=== PATIENT | female | born 1980 | race Caucasian/White ===

== ENCOUNTER 2017-06-28 14:57 | Inpatient (IN) | payer OTHER ==
[2017-06-28] MEDS ORDERED: ACETAMINOPHEN 500 MG TABLET (FP) PO ONE (16:09)
[2017-06-28] MEDS ORDERED: ACETAMINOPHEN 500 MG TABLET (FP) ONE (16:12)
[2017-06-28] MEDS ORDERED: SODIUM CHLORIDE 1,000 ML IV STA (16:12)
--- NOTE | 2017-06-28 16:24 | PDOC ---
History of Present Illness - General Chief Complaint: Hemorrhoids Stated Complaint: HEMORRHOIDS (PCP SENT) Time Seen by Provider: 06/28/17 15:21 History Source: Patient Exam Limitations: No Limitations - History of Present Illness Initial Comments: 06/28/17 16:36 My chief complaint: Rectal pain, hemorrhoids, constipation History of present illness: Patient is a 36-year-old female with a history of an anal fissure 2013 here today complaining of severe rectal pain with external hemorrhoids since 06/26/2017. Patient gave vaginally on 06/22/2017 and had an episiotomy. Patient's RD MECHANICAL ENGINEER is in [facility] [address] [place]. This was the patient's first and . Patient reports that she had had a bowel movement since 06/20/2017 and on 06/26/2017 was straining to have a bowel movement which was very painful patient noted external hemorrhoids. Patient went to [facility] while waiting to be seen she went into the bathroom had a large hard bowel movement with rectal bleeding and patient reports she had 2 slightly disimpact herself. Patient was prescribed MiraLAX and Colace 300 mg daily. Patient took MiraLAX only on 06/26/2017 and took Colace daily except for yesterday. Patient called her RD MECHANICAL ENGINEER yesterday and was told to apply hydrocortisone to her cortisone cream to her hemorrhoids. Her RD MECHANICAL ENGINEER left for 2 weeks to [place]. Patient is not breast-feeding. Patient denies any fever, chills , any vomiting. Patient reports she feels slight nausea when rectal pain is increased. Patient finds it difficult to to walk stand or sit. Patient feels the best sitting with a doughnut cushion in a wheelchair. Patient reports that her RD MECHANICAL ENGINEER did not want to do any sitz bath due to her having sutures from her episiotomy. Patient has been taking water bottle and irrigating her stitches and hemorrhoids at the same time. Patient reports she is being treated currently for and UTI with Macrobid. Patient reports her last bowel movement was 2 days ago and was loose yellowish, patient did not notice any blood mixed in with bowel movement. Patient is bleeding vaginally slightly colored blood. 06/28/17 16:42 Timing/Duration: getting worse Severity: severe (rectal hemorrhoids) Associated Symptoms: reports: denies symptoms Past History - Past Medical History Allergies/Adverse Reactions: Allergies Allergy/AdvReac Type Severity Reaction Status Date / Time latex Allergy Rash Verified 06/28/17 15:05 Penicillins Allergy Rash Verified 06/28/17 15:06 tetracycline Allergy Rash Verified 06/28/17 15:05 Home Medications: Ambulatory Orders Docusate Sodium [Colace -] 300 mg PO DAILY 06/28/17 Hydrocortisone/Aloe Vera [Cortizone-10 1% Creme] 28 gm TP ASDIR 06/28/17 Nitrofurantoin Macrocrystal [Nitrofurantoin] 25 mg PO BID 06/28/17 Vits #93/Iron Fum/FA [ Formula Tablet] 1 each PO ASDIR Other medical history: h/o anal fissure 2012 - Surgical History Abdominal Surgery: Yes (EX LAP) - Suicide/Smoking/Psychosocial Hx Smoking History: Never smoked Hx Alcohol Use: Yes (SOCIAL) Drug/Substance Use Hx: No Review of Systems - Review of Systems Able to Perform ROS?: Yes Constitutional: Yes: Loss of Appetite HEENTM: No: Symptoms Reported Respiratory: No: Symptoms reported Cardiac (ROS): No: Symptoms Reported ABD/GI: Yes: Blood Streaked Bowels (on 06/26/17), Constipated, Diarrhea (2 days ) , Nausea, Other (external hemorrhoids b/l ). No: Rectal Bleeding, Vomiting, Indigestion, Abdominal cramping, Tarry Stools : Yes: Other (currently being treated for UTI ) Musculoskeletal: No: Symptoms Reported Integumentary: No: Symptoms Reported Neurological: No: Symptoms reported *Physical Exam - Vital Signs Last Vital Signs Temp Pulse Resp BP Pulse Ox 99.0 F 77 20 136/83 97 06/28/17 15:00 06/28/17 15:00 06/28/17 15:00 06/28/17 15:00 06/28/17 15:00 - Physical Exam General Appearance: Yes: Appropriately Dressed Respiratory/Chest: positive: Lungs Clear, Normal Breath Sounds. negative: Chest Tender, Respiratory Distress Cardiovascular: positive: Regular Rhythm, Regular Rate, S1, S2 Female Pelvic Exam: positive: other (vaginal bleeding slight light pink ) Gastrointestinal/Abdominal: positive: Normal Bowel Sounds, Soft. negative: Tender, Organomegaly, Increased Bowel Sounds, Decreased BS, Distended, Guarding , Rebound, Tenderness, Mass, Hepatomegaly, Spleenomegaly Rectal Exam: positive: hemorrhoids (external non thrombosed b/l ), other ( unable to do rectal exam due to pain) Integumentary: positive: Normal Color Neurologic: positive: Alert, Normal Response, Responsive ED Treatment Course - LABORATORY CBC & Chemistry Diagram: 06/28/17 16:30 06/28/17 16:30 - RADIOLOGY Radiology Studies Ordered: Category Date Time Status ABDOMEN-KUB FLAT PLATE [RAD] Stat Radiology 06/28/17 16:12 Ordered Medical Decision Making - Medical Decision Making 06/28/17 16:42 Patient is a 36-year-old female with a history of an anal fissure 2013 here today complaining of severe rectal pain with external hemorrhoids since 2016. Patient gave vaginally on 06/22/2017 and had an episiotomy. Patient' s RD MECHANICAL ENGINEER is in [facility] [address] [place]. This was the patient's first and . Patient reports that she had had a bowel movement since 09/2017 and on 06/26/2017 was straining to have a bowel movement which was very painful patient noted external hemorrhoids. Patient went to [facility] while waiting to be seen she went into the bathroom had a large hard bowel movement with rectal bleeding and patient reports she had 2 slightly disimpact herself. Patient was prescribed MiraLAX and Colace 300 mg daily. Patient took MiraLAX only on 06/26/2017 and took Colace daily except for yesterday. Patient called her RD MECHANICAL ENGINEER yesterday and was told to apply hydrocortisone to her cortisone cream to her hemorrhoids. Her RD MECHANICAL ENGINEER left for 2 weeks to [place]. Patient is not breast-feeding. Patient denies any fever, chills, any vomiting. Patient reports she feels slight nausea when rectal pain is increased. Patient finds it difficult to to walk stand or sit. Patient feels the best sitting with a doughnut cushion in a wheelchair. Patient reports that her RD MECHANICAL ENGINEER did not want to do any sitz bath due to her having sutures from her episiotomy. Patient has been taking water bottle and irrigating her stitches and hemorrhoids at the same time. Patient reports she is being treated currently for and UTI with Macrobid. Patient reports her last bowel movement was 2 days ago and was loose yellowish, patient did not notice any blood mixed in with bowel movement. Patient is bleeding vaginally slightly colored blood. Pt.did not want any narcotic for pain relief. EXTERNAL HEMORRHOIDS B/L CONSTIPATION PLAN: CONSULT WITH DR. CROW SHOOK HE RECOMMENDED CBC WITH DIFF, CMP, TSH, XRAY ABDOMEN KUB, CONSULT WITH COLON RECTAL, IV INSERT, NS 0.9 % [address] SHOOK CAME TO SEE PT. CONSULT WITH COLON RECTAL SURGEON DR DOMINGO CALLED BACK SHE IS COVERING TODAY WILL COME TO HOSPITAL TO SEE PT. LIDOCAINE 2 % VISCOUS APPLY TO EXTERNAL HEMORRHOID ACETAMINOPHEN 1000 MG PO NOW (refused narcotic pain medication) PT IS STABLE ENOUGH TO BE TRANSFERRED TO MAIN ED LINE PRODUCER ANALY PATRICIO AND CHARGE NURSE NADIRA BRUNO 06/28/17 17:49 06/28/17 22:16 *DC/Admit/Observation/Transfer Diagnosis at time of Disposition: Prolapsed internal hemorrhoids - Discharge Dispostion Condition at time of disposition: Stable
[2017-06-28] MEDS ORDERED: LIDOCAINE VISCOUS 2% ORAL/TOP 100 ML BOTTLE MM ONE (16:41)
[2017-06-28] MEDS ORDERED: LIDOCAINE HCL 2% JELLY 10 ML CARTRIDGE ONE ×2 (16:47→18:26)
[2017-06-28 17:00] LABS: BASOPHIL 0.9 % (0-2.0); MCHC 33.9 g/dl (32.0-36.0); MEAN CELL VOLUME 88.5 fl (80-96); MEAN PLT VOLUME 8.4 fl (7.5-11.1); NEUTROPHILS 73.2 % (42.8-82.8); PLATELET COUNT 346 K/MM3 (134-434); WHITE BLOOD COUNT 8.9 K/mm3 (4.0-10.0)
[2017-06-28 17:31] LABS: ALBUMIN 3.2 g/dl (3.4-5.0); ALK PHOS 134 U/L (45-117); ANION GAP 8 (8-16); BILIRUBIN,TOTAL 0.4 mg/dL (0.2-1.0); CALCIUM 9.3 mg/dL (8.5-10.1); CO2 25 mmol/L (21-32); CREATININE 0.6 mg/dL (0.55-1.02); GLUCOSE,RANDOM 80 mg/dL (74-106); SGOT/AST 27 U/L (15-37); SGPT/ALT 34 U/L (12-78); TOT PROT 7.1 g/dl (6.4-8.2)
[2017-06-28] MEDS ORDERED: PROPOFOL 20 ML ONE (17:32)
--- NOTE | 2017-06-28 17:38 | CON.GI ---
Consult Consult Specialty:: GI Referred by:: Dr. Diogenes Corcoran Reason for Consultation:: Anorectal pain - History of Present Illness Chief Complaint: I was constipated and have pain in the rectum History of Present Illness: 36 being admitted to the [facility] ER for evaluation of anorectal pain. She recently had a vaginal delivery 06/22 at [facility]. Episiotomy was performed and retained product of conception needed to subsequently be removed as well. She describes a prolonged labor and receiving opiatae analgesia during that time. She also has a history of chronic constipation that has been worsened of late. She began experiencing anorectal discomfort this past monday accompanied by extreme constipation. She had been on colace with minimal relief. This led Ms. Farmer to attempt manual disimpaction and she describes removing a large portion of hard stool with subsequent loose BM's following. She ultimtely went to the [facility] ER and was advised to use miralax and colace. She was advised by her rn gyn to use hydrocortisone cream. She came today to the ER for further eval. Triage vitals revealed: 99 / 77 / 136/83. Anorectal pain persists. She denies abdominal pain, vomiting, fevers/chills. She experienced some rectal bleeding after the manual disimpaction. - History Source History Provided By: Patient, Significant Other Limitations to Obtaining History: No Limitations - Past Medical History Gastrointestinal: Yes: Constipation, Other (Anal fissure) Reproductive: Yes: Endometriosis - Past Surgical History Additional Surgical History: Laparoscopy 2000 secondary to endometriosis, wisdom teeth extraction - Alcohol/Substance Use Hx Alcohol Use: Yes (SOCIAL) History of Substance Use: reports: None - Smoking History Smoking history: Never smoked Have you smoked in the past 12 months: No - Social History Usual Living Arrangement: With Spouse ADL: Independent Place of : [facility] History of Recent Travel: No Home Medications - Allergies Allergies/Adverse Reactions: Allergies Allergy/AdvReac Type Severity Reaction Status Date / Time latex Allergy Rash Verified 06/28/17 15:05 Penicillins Allergy Rash Verified 06/28/17 15:06 tetracycline Allergy Rash Verified 06/28/17 15:05 - Home Medications Home Medications: Ambulatory Orders Docusate Sodium [Colace -] 100 mg PO DAILY 06/28/17 Hydrocortisone/Aloe Vera [Cortizone-10 1% Creme] 28 gm TP ASDIR 06/28/17 Nitrofurantoin Macrocrystal [Nitrofurantoin] 25 mg PO BID 06/28/17 Vits #93/Iron Fum/FA [ Formula Tablet] 1 each PO ASDIR Family Disease History - Family Disease History Other Family History: Non-contribuatory Review of Systems - Review of Systems Constitutional: denies: Chills, Unintentional Wgt. Loss Cardiovascular: denies: Chest Pain Respiratory: reports: SOB Gastrointestinal: reports: Constipation, Rectal Bleeding. denies: Abdominal Pain, Bloating Genitourinary: reports: Vaginal Bleeding Physical Exam-GI Vital Signs: Vital Signs Temperature 99.0 F 06/28/17 15:00 Pulse Rate 77 06/28/17 15:00 Respiratory Rate 06/28/17 15:00 Blood Pressure 136/83 06/28/17 15:00 O2 Sat by Pulse Oximetry (%) 97 06/28/17 15:00 Constitutional: Yes: Calm Eyes: No: Sclera Icterus Cardiovascular: Yes: Bradycardia (regular rhythm) Respiratory: Yes: CTA Bilaterally Gastrointestinal Inspection: Yes: Scars (trochar scars, + decorative umbilical ring scar). No: Distention ...Auscultate: Yes: Normoactive Bowel Sounds ...Palpate: Yes: Soft (softly protuberant). No: Hepatomegaly, Splenomegaly, Tenderness ...Percussion: No: Tympanitic ...Rectal Exam: Yes: Other (Prolapsed internal hemorrhoids at the 3 o'clock and 9 o'clock position, exquisitely tender to palpation. 2% topical lidocaine jelly was applied to the hemorrhoids) Edema: No (No LE edema) Neurological: Yes: Alert, Oriented Labs: CBC, BMP 06/28/17 16:30 CBC, BMP 06/28/17 16:30 Laboratory Tests 06/28/17 16:30 TSH 1.40 Problem List - Problems (1) Prolapsed internal hemorrhoids, grade 4 Assessment/Plan: Topical lidocaine applied Being evaluated by surgery currently. ? for manual reduction of the internal hemorrhoids Continue stool softener: MiraLAX 17g daily Code(s): K64.3 - FOURTH DEGREE HEMORRHOIDS
--- NOTE | 2017-06-28 17:41 | CONSULT ---
Consult Consult Specialty:: General Surgery Referred by:: Amber Knight Reason for Consultation:: prolapsed hemorrhoids, anorectal pain - History of Present Illness Chief Complaint: anorectal pain and hemorrhoids that won't go back in History of Present Illness: 36yo F 6d from full-term first and delivery, complicated by retained POC requiring retrieval of placenta and cord and need for episiotomy , has had chronic issues with constipation. She is being treated for a UTI, but has no medical problems otherwise. She had no BM from 06/20 to 06/26, then was straining to stool and had severe anorectal pain and noted hemorrhoids outside her anus, prompting visit to an outside hospital. While waiting to be seen, she went to the bathroom and had a large, hard BM with some bleeding (rectal vs vaginal?) and was able to disimpact herself somewhat, after which she was discharged with Colace 300mg daily and Miralax. She took the miralax once, and the Colace daily except yesterday. She called her CERTIFIED INDOOR ENVIRONMENTALIST yesterday, who advised hydrocortisone cream on the hemorrhoids, which did not help the pain, and told her not to do sitz baths because of the episiotomy sutures. [place] is now out of the country [place] 2 [place]. Her last BM was loose and yellowish 2 days ago following her hard BM and self-disimpaction. The pain is so bad she has trouble sitting, walking and standing. In the ER here, she has normal labs and temp 99. Exam showed large, edematous hemorrhoids and too much pain to tolerate a rectal exam or attempt reduction without sedation. GI has also been consulted. She last had food around 1pm. She states the hemorrhoids are not always out, but have been this way for two days. - History Source History Provided By: Patient, Medical Record Limitations to Obtaining History: No Limitations - Past Medical History Gastrointestinal: Yes: Hemorrhoids Reproductive: Yes: Endometriosis ...: No (delivered 06/22/17) ...: 1 ...Para: 1 - Past Surgical History Past Surgical History: Yes: Tonsillectomy Additional Surgical History: laparoscopy for endometriosis; wisdom teeth out - Alcohol/Substance Use Hx Alcohol Use: Yes (SOCIAL) History of Substance Use: reports: None - Smoking History Smoking history: Never smoked Have you smoked in the past 12 months: No - Social History Usual Living Arrangement: With Spouse ADL: Independent Home Medications - Allergies Allergies/Adverse Reactions: Allergies Allergy/AdvReac Type Severity Reaction Status Date / Time latex Allergy Rash Verified 06/28/17 15:05 Penicillins Allergy Rash Verified 06/28/17 15:06 tetracycline Allergy Rash Verified 06/28/17 15:05 - Home Medications Home Medications: Ambulatory Orders Docusate Sodium [Colace -] 300 mg PO DAILY 06/28/17 Hydrocortisone/Aloe Vera [Cortizone-10 1% Creme] 28 gm TP ASDIR 06/28/17 Nitrofurantoin Macrocrystal [Nitrofurantoin] 25 mg PO BID 06/28/17 Vits #93/Iron Fum/FA [ Formula Tablet] 1 each PO ASDIR Family Disease History - Family Disease History Family History: Unremarkable Review of Systems - Review of Systems Constitutional: denies: Chills, Fever Eyes: denies: Blurred Vision, Recent Change in Vision HENT: denies: Hearing Loss, Throat Pain Cardiovascular: denies: Chest Pain, Palpitations Respiratory: denies: Cough, SOB Gastrointestinal: reports: Constipation, Diarrhea (loose BMs after softeners and recent large hard BM), Nausea, Rectal Bleeding (only once with large BM at other hospital). denies: Abdominal Pain, Melena, Vomiting Genitourinary: reports: Vaginal Bleeding (). denies: Hematuria Musculoskeletal: denies: Joint Pain, Joint Swelling Integumentary: reports: Bruising (secondary to delivery trauma). denies: Rash Neurological: reports: Headache (migraines once a year or so). denies: Dizziness Physical Exam Vital Signs: Vital Signs Temperature 99.0 F 06/28/17 15:00 Pulse Rate 77 06/28/17 15:00 Respiratory Rate 20 06/28/17 15:00 Blood Pressure 136/83 06/28/17 15:00 O2 Sat by Pulse Oximetry (%) 97 06/28/17 15:00 Constitutional: Yes: Well Nourished, Anxious, Moderate Distress Eyes: Yes: Conjunctiva Clear, EOM Intact HENT: Yes: Atraumatic, Normocephalic Neck: Yes: Supple, Trachea Midline Cardiovascular: Yes: Regular Rate and Rhythm, Bradycardia (mild) Respiratory: Yes: Regular, CTA Bilaterally Gastrointestinal: Yes: Normal Bowel Sounds, Soft, Distention (secondary to enlarged uterus). No: Tenderness ...Rectal Exam: Yes: Hemorrhoids/External (large, edematous hemorrhoids, may be prolapsed internal grade 4), Hemorrhoids/Internal (prolapsed, edematous, exquisitely tender), Other (cannot tolerate TRISTAN) Renal/: Yes: Vaginal Bleeding, Other (episiotomy sutures present). No: CVA Tenderness - Left, CVA Tenderness - Right Musculoskeletal: No: Joint Stiffness, Joint Swelling Extremities: No: Cool, Cyanosis Wound/Incision: Yes: Open to air (vaginal sutures not visualized, pt with pain) Neurological: Yes: Alert, Oriented Psychiatric: Yes: Alert, Oriented Labs: CBC, BMP 06/28/17 16:30 06/28/17 16:30 Problem List - Problems (1) Prolapsed internal hemorrhoids, grade 4 Assessment/Plan: ER gave conscious sedation for attempt to reduce prolapsed hemorrhoids, which was unsuccessful; hemorrhoids come right back out discussed with Dr. Hardin, colorectal surgeon recommend pain control with narcotics prn aggressive bowel regimen with miralax and colace, fiber (30g/day) and plenty of fluids topical therapy and lidocaine jelly as needed avoid straining and pushing she will be kept in observation status in the hospital Dr. Hardin will see her tomorrow patient and understand and agree with plan Code(s): K64.3 - FOURTH DEGREE HEMORRHOIDS (2) Hemorrhoids, condition Code(s): O87.2 - HEMORRHOIDS IN THE PUERPERIUM (3) Anorectal pain Code(s): K62.89 - OTHER SPECIFIED DISEASES OF ANUS AND RECTUM (4) Constipation Code(s): K59.00 - CONSTIPATION, UNSPECIFIED Qualifiers: Constipation type: unspecified constipation type Qualified Code(s): K59.00 - Constipation, unspecified
[2017-06-28] MEDS ORDERED: MIDAZOLAM HCL 2 MG/2 ML SINGLE DOSE VIAL ONE (18:15)
[2017-06-28] MEDS ORDERED: PROPOFOL 200 MG/20 ML VIAL IVPUSH ONE ×2 (18:15→18:20)
[2017-06-28] MEDS ORDERED: morphine CARPU-JECT 4 MG/1 ML DISP.SYRIN ONE (18:22)
[2017-06-28] MEDS ORDERED: morphine CARPU-JECT 4 MG/1 ML DISP.SYRIN IVPUSH ONE (18:25)
--- NOTE | 2017-06-28 18:30 | PN ---
Progress Note (short form) - Note Progress Note: Patient had attempted reduction of hemorrhoids at bedside by Dr. Coughlin under sedation. Unsuccessful as hemorrhoids propalsed back out. ? internal/external hemorrhoidal prolapse Topical therapy for now Continued supportive measures Surgery following Problem List - Problems (1) Prolapsed internal hemorrhoids, grade 4 Code(s): K64.3 - FOURTH DEGREE HEMORRHOIDS
--- NOTE | 2017-06-28 19:46 | PDOC ---
*Physical Exam - Vital Signs Last Vital Signs Temp Pulse Resp BP Pulse Ox 99.0 F 60 16 113/78 98 06/28/17 15:00 06/28/17 18:35 06/28/17 18:35 06/28/17 18:35 06/28/17 18:35 Heart Score/ECG Review #1 06/28/17 19:59 NSR, rate 50, normal axis and intervals, no [facility] ED Treatment Course - LABORATORY CBC & Chemistry Diagram: 06/28/17 16:30 06/28/17 16:30 - ADDITIONAL ORDERS Additional order review: Laboratory Results 06/28/17 06/28/17 16:30 16:30 Sodium 140 Potassium 4.0 Chloride 107 Carbon Dioxide 25 Anion Gap 8 BUN 10 Creatinine 0.6 Creat Clearance w eGFR > 60 Random Glucose 80 Calcium 9.3 Total Bilirubin 0.4 AST 27 ALT 34 Alkaline Phosphatase 134 H Total Protein 7.1 Albumin 3.2 L TSH 1.40 06/28/17 16:30 RBC 4.24 MCV 88.5 MCHC 33.9 RDW 15.0 MPV 8.4 Neutrophils % 73.2 Lymphocytes % 17.2 Monocytes % 5.7 Eosinophils % 3.0 Basophils % 0.9 - Medications Given in the ED: ED Medications Discontinued Medications Generic Name Dose Route Start Last Admin Trade Name Bradford PRN Reason Stop Dose Admin Acetaminophen 1,000 mg 06/28/17 16:09 06/28/17 16:25 Tylenol - PO 06/28/17 16:10 1,000 mg ONCE ONE Administration Sodium Chloride 1,000 mls @ 1,000 mls/hr 06/28/17 16:12 06/28/17 16:43 Normal Saline - IV 06/28/17 17:11 1,000 mls/hr ASDIR STA Administration Lidocaine HCl 15 ml 06/28/17 16:41 06/28/17 17:09 Xylocaine 2% Viscous MM 06/28/17 16:42 15 ml ONCE ONE Administration Morphine Sulfate 4 mg 06/28/17 18:25 06/28/17 18:25 Morphine Injection - IVPUSH 06/28/17 18:26 4 mg NOW ONE Administration Propofol 600 mcg 06/28/17 18:15 06/28/17 18:15 Diprivan - IVPUSH 06/28/17 18:16 600 mcg NOW ONE Administration Propofol 200 mcg 06/28/17 18:20 06/28/17 18:20 Diprivan - IVPUSH 06/28/17 18:21 200 mcg NOW ONE Administration Medical Decision Making - Medical Decision Making 06/28/17 19:34 Patient was transferred to pa from [facility]. Briefly, 36-year-old female with a history of an anal fissure in 2012 here today complaining of severe rectal pain with external hemorrhoids since 06/26/2017. Patient gave vaginally on 06/22 and has had constipation since. She reports severe pain when defecating and reports seeing BRBPR when she attempts to move her bowels. On my evaluation, Dr. Coughlin at bedside and requesting moderate sedation to attempt to reduce the patient's prolapsed hemorrhoids on exam. Patient has multiple prolapsed hemorrhoids that are nonbleeding and non thrombosed on my exam. We consented the patient for sedation and set up all airway equipment, suction, and BVM in the room. The patient was placed on the monitor and an IV was secured. We answered all the patient's questions regarding the procedure. With the nurse and surgery and the GI doctor at the bedside we began procedural sedation using 60 mg of propofol followed by 20 mg of propofol. Doctor Coughlin attempted reduction of the prolapsed hemorrhoids but the reduction was not successful. The patient was saturating above 95% throughout with normal end- tidal CO2 throughout. The patient is currently awake and was given 4 mg of morphine for her pain after the attempted reduction. The patient is to be admitted to the hospitalist for further management with colorectal surgery. Case discussed in detail with admitting physician (Dr. Lazaro/Stahya) including history, physical exam and ancillary studies. Admitting physician has assumed care for the patient, will follow all pending diagnostics and will complete the evaluation and treatment. *DC/Admit/Observation/Transfer Diagnosis at time of Disposition: Prolapsed internal hemorrhoids - Discharge Dispostion Condition at time of disposition: Stable Admit: No - Attestations Physician Attestion: 06/28/17 19:47 I, Dr. Jayro Perez MD, attest that this document has been prepared under my direction and personally reviewed by me in its entirety. I further attest, that it accurately reflects all work, treatment, procedures and medical decision -making performed by me.
[2017-06-28] MEDS ORDERED: ACETAMINOPHEN 325 MG TABLET (FP) PO PRN (20:36)
--- NOTE | 2017-06-28 20:48 | HP ---
CHIEF COMPLAINT: Perianal pain HISTORY OF PRESENT ILLNESS: Ms. Farmer is a 36yo F with no significant PMHx who presented to ER with perianal pain. On 06/22 patient had vaginal delivery after 25 hour labor, epidural and an episiotomy. After delivery, patient endorsed constipation, and was unable to have BM for 6 days. She would strain to have BM and after an episode of severe straining, felt perianal pain and masses. Pt notified her OBGYN physician who advised her to take Miralax + Colace + apply topical steroids. She went to [facility], was not seen for a couple of hours, decided to disimpact herself, removed soft-ball sized hard stool. Now has 6/10 throbbing periananal pain, with urge to defecate, and is having loose, yellow non-bloody BMs. Endorses vaginal spotting. Unsure of rectal bleeding. Denies fevers, chills. Denies CP, SOB, abdominal pain. Of note, patient had been complaining of dysuria, frequency, urgency, without lower back pain. Her OBGYN prescribed her Macrobid x 7 days. 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: , vaginal delivery Social History: Smoking: Denies Alcohol: Denies Drugs: Denies Family History: Noncontributory Allergies latex Allergy (Verified 06/28/17 15:05) Rash Penicillins Allergy (Verified 06/28/17 15:06) Rash tetracycline Allergy (Verified 06/28/17 15:05) Rash HOME MEDICATIONS: Home Medications Medication Instructions Recorded Docusate Sodium [Colace -] 300 mg PO DAILY 06/28/17 Hydrocortisone/Aloe Vera 28 gm TP ASDIR 06/28/17 [Cortizone-10 1% Creme] Nitrofurantoin Macrocrystal 25 mg PO BID 06/28/17 [Nitrofurantoin] Vits #93/Iron Fum/FA 1 each PO ASDIR 06/28/17 [ Formula Tablet] REVIEW OF SYSTEMS CONSTITUTIONAL: Absent: fever, chills, diaphoresis, generalized weakness, malaise, loss of appetite, weight change HEENT: Absent: rhinorrhea, nasal congestion, throat pain, throat swelling, difficulty swallowing, mouth swelling, ear pain, eye pain, visual changes CARDIOVASCULAR: Absent: chest pain, syncope, palpitations, irregular heart rate, lightheadedness , peripheral edema RESPIRATORY: Absent: cough, shortness of breath, dyspnea with exertion, orthopnea, wheezing, stridor, hemoptysis GASTROINTESTINAL: Absent: abdominal pain, abdominal distension, nausea, vomiting, diarrhea, constipation, melena, hematochezia GENITOURINARY: Absent: dysuria, frequency, urgency, hesitancy, hematuria, flank pain, genital pain MUSCULOSKELETAL: Absent: myalgia, arthralgia, joint swelling, back pain, neck pain SKIN: Absent: rash, itching, pallor Present: pain in perianal region HEMATOLOGIC/IMMUNOLOGIC: Absent: easy bleeding, easy bruising, lymphadenopathy, frequent infections ENDOCRINE: Absent: unexplained weight gain, unexplained weight loss, heat intolerance, cold intolerance NEUROLOGIC: Absent: headache, focal weakness or paresthesias, dizziness, unsteady gait, seizure, mental status changes, bladder or bowel incontinence PSYCHIATRIC: Absent: anxiety, depression, suicidal or homicidal ideation, hallucinations. PHYSICAL EXAMINATION Vital Signs - 24 hr 06/28/17 06/28/17 06/28/17 15:00 17:58 18:15 Temperature 99.0 F Pulse Rate 77 Pulse Rate [ 66 66 Apical] Respiratory 20 18 18 Rate Blood Pressure 136/83 Blood Pressure 120/92 126/79 [Left Arm] O2 Sat by Pulse 97 99 98 Oximetry (%) 06/28/17 18:35 Temperature Pulse Rate Pulse Rate [ 60 Apical] Respiratory 16 Rate Blood Pressure Blood Pressure 113/78 [Left Arm] O2 Sat by Pulse 98 Oximetry (%) GEN: AAOx3, NAD, Lying comfortably HEENT: PERRLA, EOMi, No cervical LAD CV: S1, S2, RRR LUNG: CTABL ABD: Soft, NT, ND, , normoactive BS MSK: No edema, no erythema NEURO: CN 2-12 intact, no sensation deficits, MSK 5/5, reflexes 2+ SKIN: Visible 4x2cm hemorrhoidal tissue, purple, non-bleeding, tender to palpation Laboratory Results - last 24 hr 06/28/17 06/28/17 06/28/17 16:30 16:30 16:30 WBC 8.9 RBC 4.24 Hgb 12.7 Hct 37.5 MCV 88.5 MCH 30.0 MCHC 33.9 RDW 15.0 Plt Count 346 MPV 8.4 Neutrophils % 73.2 Lymphocytes % 17.2 Monocytes % 5.7 Eosinophils % 3.0 Basophils % 0.9 Sodium 140 Potassium 4.0 Chloride 107 Carbon Dioxide 25 Anion Gap 8 BUN 10 Creatinine 0.6 Creat Clearance w eGFR > 60 Random Glucose 80 Calcium 9.3 Total Bilirubin 0.4 AST 27 ALT 34 Alkaline Phosphatase 134 H Total Protein 7.1 Albumin 3.2 L TSH 1.40 Home Medication List Medication Instructions Recorded Confirmed Type Docusate Sodium [Colace -] 300 mg PO DAILY 06/28/17 06/28/17 History Hydrocortisone/Aloe Vera 28 gm TP ASDIR 06/28/17 06/28/17 History [Cortizone-10 1% Creme] Nitrofurantoin Macrocrystal 25 mg PO BID 06/28/17 06/28/17 History [Nitrofurantoin] Vits #93/Iron Fum/FA 1 each PO ASDIR 06/28/17 06/28/17 History [ Formula Tablet] Active Medications Generic Name Dose Route Start Last Admin Trade Name Freq PRN Reason Stop Dose Admin Acetaminophen 650 mg 06/28/17 20:36 Tylenol - PO Q4H PRN FEVER OR PAIN Hydrocortisone 1 applic 06/28/17 22:00 06/28/17 22:00 Anusol 2.5% Hc Cream - TP Not Given BID WHITNEY Sodium Chloride 1,000 mls @ 100 mls/hr 06/29/17 00:00 Normal Saline - IV ASDIR WHITNEY Lidocaine HCl 1 applic 06/28/17 22:00 06/28/17 21:43 Xylocaine 2% Jelly TP 1 applic BID WHITNEY Administration Non-Formulary Medication 25 mg 06/29/17 10:00 Nitrofurantoin Macrocrystal [Nitrofurantoin] PO BID WHITNEY Polyethylene Glycol 17 gm 06/29/17 10:00 Miralax (For Daily Use) - PO DAILY WHITNEY ASSESSMENT/PLAN: Pt is a 36yo F w/ recent vaginal delivery who presented with anorectal pain after severe constipation, found to have prolapsed internal hemorrhoids # Hemorrhoids - internal prolapsed vs external thrombosed - Topical 2% Lidocaine jelly - Topical Hydrocortisone cream - Continue Miralax + Colace - PO Tylenol 650mg PRN - GI and Colorectal surgery already consulted - PT/INR, T+S, NPO after midnight for possible surgery - Hydrate PO, IVNS at midnight - Avoid straining # UTI - Previously diagnosed, on Day 10/15 of Macrobid - Continue Macrobid # FEN - Fluids: PO Hydration until 12am --> IVNS @ 100cc/hr - Electrolytes: WNL - Nutrition: NPO after midnight # Prophylaxis - DVT: SCDs, low risk - GI: Not indicated - Deconditioning: PT not needed, patient is ambulatory # Dispo - Admit to obs - Await colorectal surgery recommendations, possible OR tmrw Case d/w Dr. Mcdonnell and Dr. Yamil Llamas MD - PGY1 Internal Medicine Visit type - Emergency Visit Emergency Visit: Yes ED Registration Date: 06/28/17 Care time: The patient presented to the Emergency Department on the above date and was hospitalized for further evaluation of their emergent condition. - New Patient This patient is new to me today: Yes Date on this admission: 06/28/17 - Critical Care Critical Care patient: No
--- NOTE | 2017-06-28 20:50 | PN ---
Teaching Attending Note Name of Resident: Rory Llamas ATTENDING PHYSICIAN STATEMENT I saw and evaluated the patient. I reviewed the resident's note and discussed the case with the resident. I agree with the resident's findings and plan as documented. SUBJECTIVE: 36 year old female day 5/vaginal delivery that presents c/o severe rectal pain for 2 days,10/10 in intensity, secondary to hemorrhoids. Reports fever. This was triggered by constipation. Failed manual reduction in ED . PMH endometriosis anal fissure PSX laparoscopy episiotomy OBJECTIVE: Vital Signs Temperature 99.0 F 06/28/17 15:00 Pulse Rate 60 06/28/17 18:35 Respiratory Rate 16 06/28/17 18:35 Blood Pressure 113/78 06/28/17 18:35 O2 Sat by Pulse Oximetry (%) 98 06/28/17 18:35 Rectal exam reveals approximately 4x2 cm hemorrhoidal tissue , possibly internal prolapsed, extremely tender . No obvious bleeding seen . CBC, BMP 06/28/17 16:30 06/28/17 16:30 ASSESSMENT 1. Rectal pain 2. External thromosed vs internal prolapsed hemorrhoids 3. Constipation PLAN 1. Pain control with Motrin/Tylenol PRN 2. Topical lidocaine and hydrocortisone 3. Miralax and colace for constipation 4. Colorectal surgery evaluation in am 5. NPO after midnight for possible reduction
[2017-06-28] MEDS ORDERED: LIDOCAINE HCL 2% JELLY (5 ML/TUBE) ONE (21:42)
[2017-06-28] MEDS: LIDOCAINE HCL 2% JELLY (30 ML/TUBE) TP SCH (21:43)
[2017-06-28] MEDS: HYDROCORTISONE 2.5% TOPICAL CREAM 30 GM TUBE TP SCH (22:00)
[2017-06-29] MEDS ORDERED: SODIUM CHLORIDE 1,000 ML IV SCH
[2017-06-29 01:58] VITALS: BMI 29.9
--- NOTE | 2017-06-29 05:59 | HP ---
CHIEF COMPLAINT: " I have hemorrhoids and its very painful" HISTORY OF PRESENT ILLNESS: Patient is a 36 year old female with significant past medical history of Endometriosis s/p lap in 2000, anal fissure in 2012 presented to the the ED with the chief complaint of " I have hemorrhoids and its very painful". As per the patient, she had a vaginal delivery with an episiotomy on 06/22/17, had 25 hours of labor. Patient has had h/o constipation which worsened after delivery. She says she went to [facility] for the treatment of constipation as she hadn't move her bowels for almost 6 days. She mentions she moved a hard stool after straining on her own so left from [facility] without further treatment. Today she came in to the ED for severe throbbing pain in the perianal area, 6/10 in intensity, aggravated more on lying back and even on slight touch. Patient says she had subjective fevers yesterday and was drenched in sweat. Has been passing lochia post delivery. Also mentions she was diagnosed to have Urinary tract infection after delivery and is being treated with Antibiotics ( macrobid) as outpatient. Denies chest pain, sob, cough, palpitation, abdominal pain, nausea or vomiting. Bladder habit normal. No urinary symptoms. Sleep disturbed due to pain in the perianal area. Patient was seen by GI (Dr. Aparicio) in the ED who attempted to reduce prolapsed hemorrhoids under conscious sedation, which was unsuccessful; hemorrhoids came right back out as per the note. ER course was notable for: (1) Afebrile, hemodynamically stable (2) EKG: No ST and T wave changes (3) Lidocaine and Hydrocortisone TP; IV Morphine for pain control Recent Travel: None PAST MEDICAL HISTORY: Endometriosis s/p lap in 2000, anal fissure in 2013 PAST SURGICAL HISTORY: None Social History: Smoking: Denies Alcohol: Denies Drugs: Denies Family History: Unknown Allergies latex Allergy (Verified 06/28/17 15:05) Rash Penicillins Allergy (Verified 06/28/17 15:06) Rash tetracycline Allergy (Verified 06/28/17 15:05) Rash HOME MEDICATIONS: Home Medications Medication Instructions Recorded Docusate Sodium [Colace -] 300 mg PO DAILY 06/28/17 Hydrocortisone/Aloe Vera 28 gm TP ASDIR 06/28/17 [Cortizone-10 1% Creme] Nitrofurantoin Macrocrystal 25 mg PO BID 06/28/17 [Nitrofurantoin] Vits #93/Iron Fum/FA 1 each PO ASDIR 06/28/17 [ Formula Tablet] REVIEW OF SYSTEMS CONSTITUTIONAL: Absent: fever, chills, diaphoresis, generalized weakness, malaise, loss of appetite, weight change HEENT: Absent: rhinorrhea, nasal congestion, throat pain, throat swelling, difficulty swallowing, mouth swelling, ear pain, eye pain, visual changes CARDIOVASCULAR: Absent: chest pain, syncope, palpitations, irregular heart rate, lightheadedness , peripheral edema RESPIRATORY: Absent: cough, shortness of breath, dyspnea with exertion, orthopnea, wheezing, stridor, hemoptysis GASTROINTESTINAL: Absent: abdominal pain, abdominal distension, nausea, vomiting, diarrhea, constipation, melena, hematochezia GENITOURINARY: Absent: dysuria, frequency, urgency, hesitancy, hematuria, flank pain, genital pain MUSCULOSKELETAL: Absent: myalgia, arthralgia, joint swelling, back pain, neck pain SKIN: Present: Painful hemorrhoids Absent: rash, itching, pallor HEMATOLOGIC/IMMUNOLOGIC: Absent: easy bleeding, easy bruising, lymphadenopathy, frequent infections ENDOCRINE: Absent: unexplained weight gain, unexplained weight loss, heat intolerance, cold intolerance NEUROLOGIC: Absent: headache, focal weakness or paresthesias, dizziness, unsteady gait, seizure, mental status changes, bladder or bowel incontinence PSYCHIATRIC: Absent: anxiety, depression, suicidal or homicidal ideation, hallucinations. PHYSICAL EXAMINATION Vital Signs - 24 hr 06/28/17 06/28/17 06/29/17 20:38 21:00 00:38 Temperature 98.8 F 98.9 F Pulse Rate 68 72 Respiratory 18 18 Rate Blood Pressure 124/62 128/79 O2 Sat by Pulse 98 Oximetry (%) 06/29/17 06/29/17 04:00 04:38 Temperature 97.5 F L Pulse Rate 82 Respiratory 18 Rate Blood Pressure 112/85 O2 Sat by Pulse 98 Oximetry (%) GENERAL: Young female, Awake, alert, and fully oriented, in no acute distress. HEAD: Normal with no signs of trauma. EYES: EOM intact, no pallor or icterus. EARS, NOSE, THROAT: Ears normal. Moist mucous membranes. NECK: Supple. LUNGS: B/L Breath sounds equal, clear to auscultation bilaterally. No wheezes, and no crackles. HEART: Regular rate and rhythm, normal S1 and S2 without murmur. ABDOMEN: Soft, nontender, not distended, normoactive bowel sounds, no guarding, no rebound, no masses. No hepatomegaly or splenomegaly. Perianal area: Approximately 4 x 2 cm outpouching tisssue from the anus, tender to palpiation, no bleeding, no change in color. MUSCULOSKELETAL: Normal range of motion at all joints. No bony deformities or tenderness. No CVA tenderness. UPPER EXTREMITIES: 2+ pulses, warm, well-perfused. No cyanosis. No clubbing. No peripheral edema. LOWER EXTREMITIES: 2+ pulses, warm, well-perfused. No calf tenderness. No peripheral edema. NEUROLOGICAL: No facial droop, power 5/5 in all extremities, Cranial nerves II- XII intact. Normal speech. Gait not observed. PSYCHIATRIC: Cooperative. Good eye contact. Appropriate mood and affect. SKIN: Warm, dry, normal turgor, no rashes or lesions noted, normal capillary refill. ASSESSMENT/PLAN: Patient is a 36 year old female with significant past medical history of Endometriosis s/p lap in 2000, anal fissure in 2012 presented to the the ED with the chief complaint of " I have hemorrhoids and its very painful" admitted for evaluation and treatment of hemorrhoids. # External/Internal prolapsed hemorrhoids Has h/o constipation, vaginally delivery 1 week ago Failed reduction of prolapsed hemorrhoids in the ED Placed in observation 2% Lidocaine jelly and Hydrocortisone cream TP NPO after midnight for possible surgery in am IV NS @ 100 ml/hr Miralax and PO Colace. Would encourage hydration, high fibre diet upon discharge. Surgical consult requested Appreciate GI consult. # Urinary Tract Infection Diagnosed as outpatient and is on Macrobid. No urinary symptoms at this time. Continue Macrobid x 6 more days. # FEN IV Ns @ 100cc/hr Electrolytes- WNL, to be repeated tomorrow. NPO after midnight # Prophylaxis For DVT: On Scds, patient ambulating For GI: Not indicated # Dispo: Place in observation. Duration of stay likely 1-2 days. # Code Status: Full Code Illness, Investigation and Plan of care explained to the patient and her . They verbalized understanding. Case discussed with Dr. Mcdonnell. Visit type - Emergency Visit Emergency Visit: Yes ED Registration Date: 06/28/17 Care time: The patient presented to the Emergency Department on the above date and was hospitalized for further evaluation of their emergent condition. - New Patient This patient is new to me today: Yes Date on this admission: 06/28/17 - Critical Care Critical Care patient: No
[2017-06-29 07:30] LABS: BASOPHIL 0.8 % (0-2.0); EOSINOPHIL 3.9 % (0-4.5); MCH 29.2 pg (25.7-33.7); MCHC 33.3 g/dl (32.0-36.0); MEAN CELL VOLUME 87.5 fl (80-96); MEAN PLT VOLUME 8.2 fl (7.5-11.1); NEUTROPHILS 67.1 % (42.8-82.8); PLATELET COUNT 289 K/MM3 (134-434); RDW 14.8 % (11.6-15.6); WHITE BLOOD COUNT 6.2 K/mm3 (4.0-10.0)
[2017-06-29 07:59] LABS: ANION GAP 7 (8-16); CALCIUM 8.8 mg/dL (8.5-10.1); CO2 25 mmol/L (21-32); CREATININE 0.5 mg/dL (0.55-1.02); GLUCOSE,RANDOM 72 mg/dL (74-106)
[2017-06-29 08:15] LABS: INR 1.04 (0.82-1.09); PROTHROMBIN TIME (PATIENT) 11.4 SEC (9.98-11.88)
[2017-06-29] MEDS ORDERED: POLYETHYLENE GLYCOL 3350 119 GM BTL PO SCH (10:00)
[2017-06-29] MEDS ORDERED: DOCUSATE SODIUM 100 MG CAPSULE (FP) PO SCH (10:00)
--- NOTE | 2017-06-29 10:22 | CONSULT ---
Consult Consult Specialty:: colorectal surgery Reason for Consultation:: anorectal pain - History of Present Illness Chief Complaint: anorectal pain and swelling History of Present Illness: pt is a 36F s/p vaginal delivery on 06/22 had constipation and straining 2 days ago with swelling and throbbing pain afterwards. her pain has improved somewhat from a 9.5 to a 7 out of 10 this AM. she says the topical lidocaine is helping her. she has a hx of chronic constipation. of note she had episiotomy. - Past Medical History Gastrointestinal: Yes: Hemorrhoids ...: No (delivered 06/22/17) - Past Surgical History Past Surgical History: Yes: Tonsillectomy Additional Surgical History: laparoscopy for endometriosis; wisdom teeth out - Alcohol/Substance Use Hx Alcohol Use: Yes (SOCIAL) History of Substance Use: reports: None - Smoking History Smoking history: Never smoked Have you smoked in the past 12 months: No - Social History Usual Living Arrangement: With Spouse ADL: Independent History of Recent Travel: No Home Medications - Allergies Allergies/Adverse Reactions: Allergies Allergy/AdvReac Type Severity Reaction Status Date / Time latex Allergy Rash Verified 06/28/17 15:05 Penicillins Allergy Rash Verified 06/28/17 15:06 tetracycline Allergy Rash Verified 06/28/17 15:05 - Home Medications Home Medications: Ambulatory Orders Docusate Sodium [Colace -] 300 mg PO DAILY 06/28/17 Hydrocortisone/Aloe Vera [Cortizone-10 1% Creme] 28 gm TP ASDIR 06/28/17 Nitrofurantoin Macrocrystal [Nitrofurantoin] 25 mg PO BID 06/28/17 Vits #93/Iron Fum/FA [ Formula Tablet] 1 each PO ASDIR Family Disease History - Family Disease History Family History: Unremarkable Other Family History: Non-contribuatory Review of Systems - Review of Systems Constitutional: denies: Chills, Diaphoresis, Unintentional Wgt. Loss Eyes: denies: Blind Spots HENT: denies: Difficult Swallowing, Ear Discharge Neck: denies: Decreased ROM, Lumps Cardiovascular: denies: Chest Pain, Edema Respiratory: denies: Cough, Exercise Intolerance Gastrointestinal: reports: Constipation. denies: Abdominal Pain Genitourinary: denies: Burning, Discharge Breasts: denies: Pain, Skin Changes Musculoskeletal: denies: Back Pain, Crepitus Integumentary: denies: Blister, Bruising Neurological: denies: Change in LOC, Change in Speech Endocrine: denies: Excessive Sweating, Flushing Hematology/Lymphatic: denies: Easily Bruised, Excessive Bleeding Psychiatric: denies: Altered Sleep Pattern, Anxiety Physical Exam Vital Signs: Vital Signs Temperature 97.9 F 06/29/17 06:06 Pulse Rate 60 06/29/17 06:06 Respiratory Rate 18 06/29/17 06:06 Blood Pressure 135/75 06/29/17 06:06 O2 Sat by Pulse Oximetry (%) 98 06/29/17 04:38 Constitutional: Yes: No Distress, Calm Eyes: Yes: Conjunctiva Clear, EOM Intact HENT: Yes: Atraumatic, Normocephalic Neck: Yes: Supple, Trachea Midline Cardiovascular: Yes: Regular Rate and Rhythm Respiratory: Yes: Regular, CTA Bilaterally Gastrointestinal: Yes: Soft. No: Distention, Tenderness ...Rectal Exam: Yes: Other (grade 4 hemorrhoids) Renal/: No: CVA Tenderness - Left, CVA Tenderness - Right Breast(s): No: Mass, Nipple Inversion Musculoskeletal: No: Joint Stiffness, Joint Swelling Extremities: No: Amputation, Calf Tenderness Integumentary: No: Erythema, Rash Neurological: Yes: Alert, Oriented Psychiatric: Yes: Alert, Oriented Labs: CBC, BMP 06/29/17 06:00 06/29/17 06:00 Problem List - Problems (1) Prolapsed internal hemorrhoids, grade 4 Assessment/Plan: patient counseled and re-assured will need time to elapse for condition to improve high fiber diet (25-30grams a day) drink alot of water percocet prn pain #30 please miralax or milk of magnesia or even magnesium citrate for constipation topical lidocaine 5% ointment apply to anal area prn pain q4 hrs disp 30 or 45g tube Code(s): K64.3 - FOURTH DEGREE HEMORRHOIDS
--- NOTE | 2017-06-29 11:12 | DS ---
Physical Exam: SUBJECTIVE: Patient seen and examined OBJECTIVE: Vital Signs Period Temp Pulse Resp BP Sys/Faria Pulse Ox Last 24 Hr 97.5 F-98.9 F 60-82 18-18 112-135/62-85 98-98 PHYSICAL EXAM GENERAL: The patient is awake, alert, and fully oriented, in no acute distress. HEAD: Normal with no signs of trauma. EYES: PERRL, extraocular movements intact, sclera anicteric, conjunctiva clear. ENT: Ears normal, nares patent, oropharynx clear without exudates, moist mucous membranes. NECK: Trachea midline, full range of motion, supple. LUNGS: Breath sounds equal, clear to auscultation bilaterally, no wheezes, no crackles, no accessory muscle use. HEART: Regular rate and rhythm, S1, S2 without murmur, rub or gallop. ABDOMEN: Soft, nontender, nondistended, normoactive bowel sounds, no guarding, no rebound, no hepatosplenomegaly, no masses. EXTREMITIES: 2+ pulses, warm, well-perfused, no edema. NEUROLOGICAL: Cranial nerves II through XII grossly intact. Normal speech, gait not observed. PSYCH: Normal mood, normal affect. SKIN: Warm, dry, normal turgor, no rashes or lesions noted. LABS Laboratory Results - last 24 hr 06/29/17 06/29/17 06/29/17 06:00 06:00 06:00 WBC 6.2 D RBC 4.22 Hgb 12.3 Hct 36.9 MCV 87.5 MCH 29.2 MCHC 33.3 RDW 14.8 Plt Count 289 MPV 8.2 Neutrophils % 67.1 Lymphocytes % 20.4 Monocytes % 7.8 Eosinophils % 3.9 Basophils % 0.8 PT with INR 11.40 INR 1.04 Sodium 140 Potassium 3.8 Chloride 108 H Carbon Dioxide 25 Anion Gap 7 L BUN 8 Creatinine 0.5 L Random Glucose 72 L Calcium 8.8 Blood Type Antibody Screen 06/29/17 06/29/17 06:00 08:16 WBC RBC Hgb Hct MCV MCH MCHC RDW Plt Count MPV Neutrophils % Lymphocytes % Monocytes % Eosinophils % Basophils % PT with INR INR Sodium Potassium Chloride Carbon Dioxide Anion Gap BUN Creatinine Random Glucose Calcium Blood Type A POSITIVE A POSITIVE Antibody Screen Negative HOSPITAL COURSE: Date of Admission:06/28/17 Date of Discharge: 06/29/17 Discharge Summary Reason For Visit: PROLAPSED INTERNAL HERMRRHOIDS Current Active Problems Anorectal pain (Acute) Constipation (Acute) Hemorrhoids, condition (Acute) Prolapsed external hemorrhoids (Acute) Prolapsed internal hemorrhoids (Acute) Prolapsed internal hemorrhoids, grade 4 (Acute) Condition: Stable - Home Medications Comprehensive Discharge Medication List: Ambulatory Orders Docusate Sodium [Colace -] 300 mg PO DAILY 06/28/17 Hydrocortisone/Aloe Vera [Cortizone-10 1% Creme] 28 gm TP ASDIR 06/28/17 Nitrofurantoin Macrocrystal [Nitrofurantoin] 25 mg PO BID 06/28/17 Vits #93/Iron Fum/FA [ Formula Tablet] 1 each PO ASDIR
[2017-06-29] MEDS: HYDROCORTISONE 2.5% TOPICAL CREAM 30 GM TUBE TP SCH (11:19)
[2017-06-29] MEDS: LIDOCAINE HCL 2% JELLY (30 ML/TUBE) TP SCH (11:19)
[2017-06-29 11:36] VITALS: BP 127/97; PULSE 68; TEMP 98.1
--- NOTE | 2017-06-29 14:30 | EKG ---
Test Reason : Blood Pressure : / mmHG Vent. Rate : 050 BPM Atrial Rate : 050 BPM P-R Int : 172 ms QRS Dur : 088 ms QT Int : 456 ms P-R-T Axes : 053 015 034 degrees QTc Int : 415 ms SINUS BRADYCARDIA OTHERWISE NORMAL ECG NO PREVIOUS ECGS AVAILABLE Confirmed by IVETTE VENTURA MD ([id number]) on 06/29/2017 2:29:27 PM Referred By: Confirmed By:IVETTE VENTURA MD
== END 2017-06-29 11:49 | disposition home or self-care (01) | DRG 776 ==
LOC: JERFT 14:57 → JER 14:57 → JERBED 19:47 → J8W 23:16
PROVIDERS: ADMIT Internal Medicine; ATTEND Nurse Practitioner Acute Care
DX: O87.2 Hemorrhoids in the puerperium (principal); O86.20 Urinary tract infection following delivery, unspecified; K59.00 Constipation, unspecified
CPT/HCPCS: 36415; 74000-TC; 80048; 80053; 84443; 85025; 85610; 86850; 86900; 86901; 93005; 93010; 99285-25